=== PATIENT | male | born 1950 | race Caucasian/White ===

== ENCOUNTER 2016-05-31 15:44 | Emergency (ER) | payer OTHER ==
--- NOTE | 2016-05-31 17:10 | UCPHY ---
H & P Patient Type: New Smoking Status: Never smoked HPI/ROS: CHIEF COMPLAINT: cough HISTORY OF PRESENT ILLNESS: cough that started abruptly at 6:00 p.m. on Wednesday. He was resting when it started. It is a mostly nonproductive cough. Somewhat febrile subjectively. No chills. Some headache and malaise. No chest pain of any kind. No shortness of breath. No audible wheezing. No abdominal urinary complaints. No lower extremity erythema, edema or pain. He did recently travel from [place]. He has had pneumonia many years ago but only x1. He has diabetes but his blood sugars well controlled with insulin. No predictable exacerbating factors. Some improvement with Coricidin HBP over-the- counter. No other associated complaints or modifying factors. REVIEW OF SYSTEMS: Ten systems reviewed and are negative unless otherwise noted in the HPI PERTINENT MEDICAL HISTORY: Insulin-dependent diabetic EXAMINATION General Appearance: Alert, no distress Head: normocephalic, atraumatic Eyes: Pupils equal and round, no conjunctival pallor or injection ENT, Mouth: Mucous membranes moist. Uvula midline. No erythema or edema. Neck: Normal inspection, supple, non-tender Respiratory: Mild rhonchi. No crackles. No consolidation. No diminishment. No retractions. No distress. Cardiovascular: Regular rate and rhythm . No murmur. Pulses intact distally. Gastrointestinal: large abdominal habitus. No tympany rigidity. Neurological: A&O, nonfocal, normal gait Skin: Warm and dry, no rash Extremities: Nontender, no pedal edema Psychiatric: Mood and affect normal DIFFERENTIAL DIAGNOSES: Including but not limited to Pneumonia, influenza, viral illness, bronchitis, sepsis, sirs MDM: 4:50 p.m. Cough, fever and permissive hypoxia. Patient does have a clinical picture consistent with influenza more than pneumonia. Chest x-ray and flu swabs are pending. I have ordered IV access, laboratory studies including a lactic acid given the fact that he does meet SIRS criteria. He is a diabetic who is well controlled right now with today's blood glucose measuring approximately 110 each time. He is hypertensive but in no acute distress exhibiting no signs of hypertensive emergency or urgency. 5:05 p.m. notified by MARIEL in tech that the patient is declining an IV at this time. We will proceed with influenza swab and chest x-ray. He is also declining admission. I will re-evaluate and discuss with him. 5:30 p.m. positive for influenza A. Vital signs are acceptable given this. That is he is mildly tachycardic and his oxygenation remains above 90%. He is also a visitor from [place] has only been here for 2 days. He has no fever at this time. His chest x-ray is pending. He is in no acute distress. 6:00 p.m. chest x-ray is unremarkable. There is amy hilar thickening consistent with influenza bronchitis. No evidence of pneumonia. Vital signs remain stable and acceptable for influenza. I did offer admission and IV fluids and laboratory studies, but the patient did decline. I do feel that this is a reasonable declination. He is stable and does have an etiology for his complaints. He will be discharged home with Tamiflu. We discussed the nature of the medication however may or may not provide any assistance to him. I also recommend that he obtain a pulse oximeter while he is here to monitor as he does have the flu and [place]. He is to return to the ER or urgent care for any worsening of symptoms, any lightheadedness or dizziness. I have answered all his questions and he is comfortable this plan. He is discharged home in stable condition with strict hand hygiene and respiratory precautions as he does have a relative with a 2-month-old child in the house. SUPERVISION: This patient was independently evaluated without the aide of supervising physician. (Carlos Charles) Constitutional: Initial Vital Signs Temperature (C) 100.0 F 05/31/16 16:32 Heart Rate 111 H 05/31/16 16:32 Respiratory Rate 20 05/31/16 16:32 Blood Pressure 207/73 H 05/31/16 16:32 O2 Sat (%) 91 L 05/31/16 16:32 O2 Delivery Mode Nasal Cannula Allergies/Adverse Reactions: No Known Allergies Allergy (Unverified 05/31/16 16:29) Home Medications: Medication Instructions Recorded Actos 05/31/16 Avastin 05/31/16 Lantus 100 UNITS/ML (*) 05/31/16 Lisinopril 05/31/16 Metformin HCl 05/31/16 Ondansetron Odt [Zofran Odt 4 mg 4 mg PO Q6 PRN #12 tab 05/31/16 (*)] Oseltamivir Phosphate [Tamiflu 75 75 mg PO BID #10 cap 05/31/16 mg (*)] UREA 05/31/16 MDM/Departure - MDM Medications Given: Discontinued Medications Oseltamivir Phosphate (Tamiflu) 75 mg PO EDNOW ONE Stop: 05/31/16 17:31 Last Admin: 05/31/16 17:34 Dose: 75 mg ED Course/Re-evaluation: Urgent Care PA supervision Physician documentation: The patient was evaluated and managed by the physician assistant professor of communication. My co- signature indicates that I have reviewed this chart and I agree with the findings and plan of care as documented. I am the secondary supervising physician. (Leodan Garcias) - Depart Disposition: Home, Routine, Self-Care Clinical Impression: Cough, Influenza A Condition: Good Instructions: Influenza (ED), H1N1 Influenza (ED) Additional Instructions: Tamiflu will be prescribed. We discussed the nature of this medication. Zofran will be prescribed prophylactically. Maintain your blood glucose closely with her insulin. Follow up with primary care physician. Return to the ER or urgent care for lightheadedness, dizziness, persistent fever or any chest pain. Recommend obtaining a pulse oximeter at the pharmacy today to monitor at home Prescriptions: Ondansetron Odt [Zofran Odt 4 mg (*)] 4 mg PO Q6 PRN #12 tab PRN Reason: Nausea/Vomiting, Use 1st Oseltamivir Phosphate [Tamiflu 75 mg (*)] 75 mg PO BID #10 cap Referrals: [facility] [Other] - As per Instructions - PQRS PQRS Measurement: not applicable (Carlos Charles)
[2016-05-31] MEDS ORDERED: OSELTAMIVIR PHOSPHATE 75 MG CAP PO ONE (17:30)
[2016-05-31 18:05] VITALS: BP 155/77; PULSE 118; RESP 14; TEMP 99.3; O2SAT 95
== END 2016-05-31 18:05 | disposition home or self-care (01) ==
LOC: CED 15:44
DX: J10.1 Influenza due to other identified influenza virus with other respiratory manifestations (principal)
CPT/HCPCS: 71020-PO; 87400-PO; G0463-PO